=== PATIENT | female | born 1990 | race Caucasian/White ===

== ENCOUNTER 2016-07-30 18:18 | Emergency (ER) | payer SELFPAY ==
--- NOTE | ~2016-07-30 | ER ---
PATIENT'S NAME: JEN MORAN [facility] AGE: 26 Y [address] ROOM: [place] [address] LOCATION: [facility] ADMIT DATE: 07/30/2016 ER/Outpatient Report DISCHARGE DATE: 07/30/2016 FAMILY PHYSICIAN: PHYSICIAN, HUA ATTENDING PHYSICIAN: Ruth Loo TIME OF ARRIVAL: 1821 hours. TIME OF EXAM: 1821 hours. CHIEF COMPLAINT: Sore on left inner thigh. HISTORY OF PRESENT ILLNESS: The patient states she noticed a lesion on her left upper inner thigh area this morning. It has become more swollen and tender as the day has gone on. She has never had anything like this before. Denies any kind of injury. ALLERGIES: NO KNOWN ALLERGIES. MEDICATIONS: No current medications. PAST MEDICAL HISTORY: Anxiety and depression. SOCIAL HISTORY: Denies use of tobacco, drugs, or alcohol. REVIEW OF SYSTEMS: All negative other than those mentioned in the HPI. PHYSICAL EXAMINATION: VITAL SIGNS: She weighed 95.4 kg. Blood pressure is 134/78, pulse of 85, respirations 16, temp of 98.6, and O2 sat was 97% on room air. GENERAL: She is awake, alert, and oriented x4. SKIN: [place], warm, and dry. LUNGS: Respirations are even and nonlabored. EXTREMITIES: The patient has a red raised lesion of the left upper inner thigh. No discharge from the area at this time. She does have a whitish purple color head to it. It is tender to touch. PATIENT'S NAME: JEN MORAN [facility] AGE: 26 Y [address] ROOM: [place] [address] LOCATION: [facility] ADMIT DATE: 07/30/2016 ER/Outpatient Report DISCHARGE DATE: 07/30/2016 FAMILY PHYSICIAN: PHYSICIAN, NO ATTENDING PHYSICIAN: Ruth Loo PROCEDURE NOTE: The area was cleansed with alcohol and anesthetized with 1% lidocaine with epinephrine. Area did drain a milky colored fluid. Sample was obtained. A small incision was made. Area was cleansed well and small incision was left open to allow drainage. IMPRESSION: Infected lesion of the left thigh. PLAN: Home, rest, wash the area at least twice a day with soap and water, cover with a Band-Aid as needed. Tylenol or ibuprofen for discomfort. Prescription was written for Keflex. Area was cleansed well and Band-Aid was applied. The patient tolerated the procedure well. RAKESH KUO APRN FOR MD KIERAN BRYSON/patrick /[id number] d: 07/31/165 t: 08/02/16 1815, OUTPATIENT REPORT
[~2016-07-30 18:18] MED LIST: EFFEXOR XR75 MG PO; MINIPRESS2 MG PO; PAXIL20 MG PO; PROVENTIL OR V6.7 GM INH; PROZAC20 MG PO; VISTARIL25 M1 PO; VISTARIL25 MG PO; VISTARIL50 MG PO
== END 2016-07-30 18:53 | disposition disaster alternative care site (69) ==
LOC: GMED 18:18
PROC: 0H9JXZZ Drainage of Left Upper Leg Skin, External Approach (ICD-10-PCS; principal; 2016-07-30)
DX: L98.9 Disorder of the skin and subcutaneous tissue, unspecified (principal); F32.9 Major depressive disorder, single episode, unspecified; F41.9 Anxiety disorder, unspecified

== ENCOUNTER 2016-08-01 20:38 | Emergency (ER) | payer SELFPAY ==
--- NOTE | ~2016-08-01 | ER ---
PATIENT'S NAME: JEN MORAN [facility] AGE: 26 Y [address] ROOM: [place] [address] LOCATION: ED ADMIT DATE: 08/01/2016 ER/Outpatient Report DISCHARGE DATE: 08/01/2016 FAMILY PHYSICIAN: PHYSICIAN, HUA ATTENDING PHYSICIAN: Ruth Loo Time of Arrival: 2037 hours. Time of Evaluation: 2044 hours. CHIEF COMPLAINT: Left leg pain, possible infection. HISTORY OF PRESENT ILLNESS: This is a 26-year-old female, who presents to the ER, who states that she was evaluated here 2 days ago with a possible infection to her left inner thigh. They did culture the pus that came out of it and placed on Keflex. The patient states that she feels like the redness is worsened. She has not been running any fevers. She denies any other problems at this time. ALLERGIES: NO KNOWN ALLERGIES. MEDICATIONS: Please see medication list nurse's notes. PAST MEDICAL HISTORY: Anxiety and depression. PAST SURGERIES: Left eye surgery. SOCIAL HISTORY: Denies smoking, drug, or alcohol use. REVIEW OF SYSTEMS: A 10-point review of systems was completed and was negative with the exception of those discussed in the HPI. PHYSICAL EXAMINATION: VITAL SIGNS: Height 5 feet and 3 inches stated, weight 96.2 kg taken, blood pressure is 130/83, pulse 89, respirations 20, temperature 98.5 degrees tympanically, and saturations 97% on room air. Amma Coma Score is 15. GENERAL: Alert, calm, well-developed female, in no acute distress. LUNGS: Clear to auscultation bilaterally. No wheeze or crackles. Normal respiratory effort. PATIENT'S NAME: JEN MORAN [facility] AGE: 26 Y [address] ROOM: [place] [address] LOCATION: ED ADMIT DATE: 08/01/2016 ER/Outpatient Report DISCHARGE DATE: 08/01/2016 FAMILY PHYSICIAN: PHYSICIAN, HUA ATTENDING PHYSICIAN: Ruth Loo HEART: Regular rate and rhythm. No lifts, thrills, or murmurs. EXTREMITIES: No clubbing, cyanosis, or edema. Has full range of motion of all limbs. SKIN: She has an area of erythema approximately the size of orange to her left inner thigh. There is some slight induration there and no pustule noted. There is no active draining to the area. LABORATORY DATA AND X-RAYS: None were done. IMPRESSION: Infected lesion to left inner thigh. ASSESSMENT AND PLAN: Since the patient states that the Keflex seems to not be working, I will start her on Bactrim to use as directed. She needs to apply warm compresses to the skin, keep the area clean and dry, monitor the skin closely, and I would like her to follow up with primary care physician in 1 to 2 days for followup care. The patient understands and agrees with care. MARTIN PA PA-C FOR MD KIRBY BRYSON/patrick /[id number] d: 08/02/162 t: 08/02/16 1815, OUTPATIENT REPORT
== END 2016-08-01 21:13 | disposition disaster alternative care site (69) ==
LOC: GMED 20:38
DX: L08.9 Local infection of the skin and subcutaneous tissue, unspecified (principal); F41.9 Anxiety disorder, unspecified; F32.9 Major depressive disorder, single episode, unspecified

== ENCOUNTER 2016-09-28 15:19 | Emergency (ER) | payer SELFPAY ==
--- NOTE | ~2016-09-28 | ER ---
PATIENT'S NAME: JEN MORAN [facility] AGE: 26 Y [address] ROOM: [place] [address] LOCATION: ED ADMIT DATE: 09/28/2016 ER/Outpatient Report DISCHARGE DATE: 09/28/2016 FAMILY PHYSICIAN: PHYSICIAN, HUA ATTENDING PHYSICIAN: Yogesh Farrell Time of Arrival: 1525 hours. Time of Evaluation: 1536 hours. CHIEF COMPLAINT: Rectal bleeding, pain. HISTORY OF PRESENT ILLNESS: The patient states she has been quite constipated this past week, has had hard stools. Today, she went to the bathroom and urinated. Did not have stool and noticed blood from the rectal area when she wiped. She says the rectal area is very tender to touch. She reports she has also had some abdominal cramping. She did do a home test the other day. In fact, she has done several. One was positive and the other two were negative. She has been nauseated today and vomited x1 today. She reports her last menstrual period was 5 weeks ago. She has had 3 prior pregnancies. One elective . The others were term pregnancies. She reports she has a single partner. She did get tested for chlamydia earlier this week but has not got the results back yet. She denies her and her partner having anal intercourse. She has not felt feverish. ALLERGIES: SHE HAS NO KNOWN ALLERGIES. MEDICATIONS: She is currently on vitamins. PAST MEDICAL HISTORY: As stated before. PAST SURGICAL HISTORY: Negative. SOCIAL HISTORY: She denies use of tobacco or drugs. She has not drank any alcohol since questionable . REVIEW OF SYSTEMS: All negative other than those mentioned in the HPI. PATIENT'S NAME: JEN MORAN [facility] AGE: 26 Y [address] ROOM: [place], [place] [address] LOCATION: ED ADMIT DATE: 09/28/2016 ER/Outpatient Report DISCHARGE DATE: 09/28/2016 FAMILY PHYSICIAN: PHYSICIAN, HUA ATTENDING PHYSICIAN: Yogesh Farrell PHYSICAL EXAMINATION: VITAL SIGNS: She weighs 96.8 kg, blood pressure is 132/83, pulse of 91, respirations 18, temperature of 97.8, O2 saturation is 95% on room air. GENERAL: She is awake, alert, and oriented x4. SKIN: pink, warm, and dry. RESPIRATIONS: Even and nonlabored. Lung sounds are clear throughout. HEART: Regular rate and rhythm. ABDOMEN: Soft, nondistended. Bowel sounds are present. RECTAL: Does show a small external thrombosed hemorrhoid. It is tender to touch. No bleeding at this time. I did do a serum test on the patient, is negative. IMPRESSION: Hemorrhoid. PLAN: Home, rest. Discussed with the patient increasing of fluids. Prescription was written for some hydrocortisone/lidocaine cream to apply to the area. Discussed doing Sitz type baths to help cleanse the area well. If she continues to have problems, she is to follow up with her primary provider in 2 to 3 days. She verbalized understanding. RAKESH KUO APRN FOR MD KIERAN KRAMER/patrick /[id number] d: 09/28/162099 t: 10/08/16 1933, OUTPATIENT REPORT
== END 2016-09-28 16:27 | disposition disaster alternative care site (69) ==
LOC: GMED 15:19
DX: K64.5 Perianal venous thrombosis (principal)

== ENCOUNTER 2016-10-22 23:24 | Emergency (ER) | payer SELFPAY ==
--- NOTE | ~2016-10-22 | ER ---
PATIENT'S NAME: JEN MORAN [facility] AGE: 26 Y [address] ROOM: [place] [address] LOCATION: ED ADMIT DATE: 10/22/2016 ER/Outpatient Report DISCHARGE DATE: 10/23/2016 FAMILY PHYSICIAN: PHYSICIAN, NO ATTENDING PHYSICIAN: Edgar Morrison HISTORY OF PRESENT ILLNESS: The patient is a 26-year-old, who comes in with left lower quadrant abdominal pain. The patient saw ОЛЕГ Foster. Sonali asked me to follow up the patient's laboratory, x-ray study results, final diagnosis, and treatment plan. Sonali transferred the patient to nh at shift change. LABORATORY DATA AND X-RAYS: The patient's CMS was normal except for a low calcium of 8.2, slightly elevated AST of 56. Serum quantitative HCG was normal, less than 1.0. CBC showed a white count of 9300, 59 segs, 31 lymphs, 6 monos, 3 eos, 1 baso, hemoglobin is 12.8, hematocrit 36.9, platelet count is 299,000. KUB film showed increased stool pattern consistent with constipation. We will review x- ray with radiologist. IMPRESSION: Abdominal pain, etiology uncertain, but most likely constipation. PLAN: The patient was given 2 Dulcolax tabs orally in the emergency room. Dismissed home. Observation. Activity as tolerated. Clear liquid diet for 24 hours. One bottle of magnesium citrate orally at home. Follow up with personal physician in 2 to 3 days if no improvement. Discussion ensued with the patient concerning my findings and recommendations, she understands. EDGAR MORRISON MD SDS/modl /[id number] d: 10/23/16133 t: 10/23/161814, OUTPATIENT REPORT
--- NOTE | ~2016-10-22 | ER ---
PATIENT'S NAME: JEN MORAN [facility] AGE: 26 Y [address] ROOM: [place] [address] LOCATION: [facility] ADMIT DATE: 10/22/2016 ER/Outpatient Report DISCHARGE DATE: 10/23/2016 FAMILY PHYSICIAN: PHYSICIAN, NO ATTENDING PHYSICIAN: Edgar Garland Time of Arrival: 2326 hours. Time of Exam: 2326 hours. CHIEF COMPLAINT: Abdominal pain. HISTORY OF PRESENT ILLNESS: The patient states she has had abdominal pain pretty consistent since 10/19/2016, became more intense today. She has been nauseated, vomited once this morning. Has felt feverish. Had a bowel movement approximately an hour and half prior to arrival, states it was normal. Denies any pain with urination. She states her last menstrual period was in August. She did have a test done in September, it was negative. ALLERGIES: NO KNOWN ALLERGIES. CURRENT MEDICATIONS: None. PAST MEDICAL HISTORY: Depression, anxiety, asthma, and hemorrhoids. PAST SURGERIES: Left eye surgery. HISTORY: She is a 4, para 3, AB 1. SOCIAL HISTORY: Denies use of tobacco or drugs. Does drink alcohol on a weekly basis. REVIEW OF SYSTEMS: All negative other than those mentioned in the HPI. PHYSICAL EXAMINATION: VITAL SIGNS: She weighed 98.5 kg. Blood pressure is 140/81, pulse is 77, respirations are 16, temperature of 98.7, and O2 saturations 99% on room air. GENERAL: She is awake, alert, and oriented x4. PATIENT'S NAME: JEN MORAN [facility] AGE: 26 Y [address] ROOM: [place] [address] LOCATION: [facility] ADMIT DATE: 10/22/2016 ER/Outpatient Report DISCHARGE DATE: 10/23/2016 FAMILY PHYSICIAN: PHYSICIAN, NO ATTENDING PHYSICIAN: Edgar Garland SKIN: [place], warm, and dry. RESPIRATIONS: Even and nonlabored. Lung sounds are clear throughout. HEART: Regular rate and rhythm. ABDOMEN: Soft and nondistended. Bowel sounds are present. She is tender in the left lower quadrant primarily. No rebound tenderness. LABORATORY DATA AND X-RAYS: Lab work was drawn. CBC returned within normal limits. Report was given to Dr. Garland at the change of the shift. RAKESH KUO APRN FOR MD KIERAN BERNARDO/shiral /[id number] d: 10/23/16 0140 t: 10/25/16 1208, OUTPATIENT REPORT
[2016-10-22 23:47] LABS: BASOPHIL # 0.1 K/uL (0.0-0.2); BASOPHIL % 0.6 %; EOSINOPHIL # 0.2 K/uL (0.0-0.5); EOSINOPHIL % 2.6 %; HEMATOCRIT 36.9 % (33.0-46.0); HEMOGLOBIN 12.8 g/dL (11.0-15.0); IMMATURE GRANULOCYTE % 0.2 %; LYMPHOCYTE # 2.9 K/uL (0.8-4.0); LYMPHOCYTE % 30.9 %; MCH 30.1 pg (27.0-34.0); MCHC 34.7 gm/dL (32.0-36.5); MCV 86.8 fl (83.0-98.0); MONOCYTE # 0.6 K/uL (0.0-1.0); MONOCYTE % 6.4 %; MPV 9.4 fl (9.4-12.4); NEUTROPHIL # (ANC) 5.5 K/uL (1.8-7.8); NEUTROPHIL % 59.3 %; NRBC % 0 /100WBC (0-0.00); PLATELET COUNT 299 K/uL (150-450); RBC 4.25 M/uL (3.50-5.00); RDW-CV 12.9 % (11.9-14.6); WBC 9.3 K/uL (4.0-11.0)
[2016-10-23 00:05] LABS: ALBUMIN 3.3 gm/dL (3.5-5.0); ALK PHOS 96 IU/L (33-138); ALT 67 IU/L (12-78); ANION GAP 12.7 (10.0-19.0); AST 56 IU/L (10-40); BLOOD UREA NITROGEN 12 mg/dL (6-24); CALCIUM 8.2 mg/dL (8.5-10.5); CHLORIDE 109 mMol/L (96-110); CO2 22 mMol/L (22-32); CREATININE 0.8 mg/dL (0.5-1.1); ESTIMATED GFR (MDRD EQUATION) > 60; POTASSIUM 3.7 mMol/L (3.7-5.1); SODIUM 140 mMol/L (135-145); TOTAL BILIRUBIN 0.2 mg/dL (0.0-1.5); TOTAL PROTEIN 7.3 g/dL (6.0-8.4)
== END 2016-10-23 00:49 | disposition disaster alternative care site (69) ==
LOC: GMED 23:24
PROVIDERS: Emergency Medicine
DX: R10.32 Left lower quadrant pain (principal); F32.9 Major depressive disorder, single episode, unspecified; F41.9 Anxiety disorder, unspecified; J45.909 Unspecified asthma, uncomplicated; Z98.890 Other specified postprocedural states

== ENCOUNTER 2016-11-01 19:17 | Emergency (ER) | payer SELFPAY ==
--- NOTE | ~2016-11-01 | ER ---
PATIENT'S NAME: JEN MORAN [facility] AGE: 26 Y [address] ROOM: [place] [address] LOCATION: [facility] ADMIT DATE: 11/01/2016 ER/Outpatient Report DISCHARGE DATE: 11/01/2016 FAMILY PHYSICIAN: PHYSICIAN, NO ATTENDING PHYSICIAN: Edgar Garland CHIEF COMPLAINT: Right hand injury. HISTORY OF PRESENT ILLNESS: The patient got her right hand shut in a car door. This was an accident with her friend shutting the door over her hand. This occurred just prior to arrival. She complains of pain throughout her right lateral hand, base of the thumb. PAST MEDICAL HISTORY: Anxiety, depression, asthma. ALLERGIES: NONE. HOME MEDICATIONS: Multivitamin and albuterol. REVIEW OF SYSTEMS: CONSTITUTIONAL: The patient denies any other injuries. No recent health concerns. RESPIRATORY: No shortness of breath. GI: No nausea. : No urinary symptoms. MUSCULOSKELETAL: She has range of motion of her 5th finger though very reluctantly. HEMATOLOGY: No history of bleeding disorder. PHYSICAL EXAMINATION: VITAL SIGNS: Temperature 97.9, pulse of 86, respiratory rate is 16, blood pressure 132/86, room air oxygen saturation 96%. GENERAL APPEARANCE: Patient is alert and oriented. [place], warm, and dry. No acute distress. She is holding her right hand crossed her leg. HEENT: Head is normocephalic. Ears, nose, and throat not examined. NECK: Supple. LUNGS: Clear to anterior-posterior auscultation. Normal respiratory rate. HEART: Rate is regular. Normal S1, S2. No murmurs. ABDOMEN: Soft, nontender, and nondistended. Bowel sounds present in all 4 quadrants. PATIENT'S NAME: JEN MORAN [facility] AGE: 26 Y [address] ROOM: [place], [place] [address] LOCATION: [facility] ADMIT DATE: 11/01/2016 ER/Outpatient Report DISCHARGE DATE: 11/01/2016 FAMILY PHYSICIAN: PHYSICIAN, NO ATTENDING PHYSICIAN: Edgar Garland EXTREMITIES: Cap refill less than 3 seconds. Peripheral pulses 2+. No edema. The right hand is without erythema or edema. SKIN: Intact. She will not allow me to palpate the wrist or the hand. Fingers are neurovascularly intact. Cranial nerves 2 through 12 are grossly intact. X-ray of the right hand and wrist reveals no acute process. IMPRESSION/ASSESSMENT: Contusion right hand. EMERGENCY DEPARTMENT COURSE: The patient was noted to suddenly start using the right hand once told there were no fractures and she asks for a note for work. DISPOSITION AND PLAN: The patient is to use ice off and on for the next 24-48 hours. She may take Tylenol or ibuprofen for discomfort. She was given a note stating that she was seen in the emergency room. NATHANAEL KALINA ALCANTARA FOR EDGAR GARLAND MD DP/modl /[id number] d: 11/02/16 0213 t: 11/11/16 1419, OUTPATIENT REPORT
== END 2016-11-01 19:56 | disposition disaster alternative care site (69) ==
LOC: GACC 19:17
DX: S60.221A Contusion of right hand, initial encounter (principal); F32.9 Major depressive disorder, single episode, unspecified; F41.9 Anxiety disorder, unspecified; J45.909 Unspecified asthma, uncomplicated; W22.8XXA Striking against or struck by other objects, initial encounter